=== PATIENT | female | born 1950 | race Caucasian/White ===

== ENCOUNTER 2018-07-03 22:11 | Inpatient (IN) | payer OTHER ==
[~2018-07-03] VITALS: Ht 157.5 cm; Wt 80.2 kg
[~2018-07-03 22:11] MED LIST: ACID REDUCER20 MG PO; ASPIRIN325 MG PO; CARDIZEM CD240 MG PO; CELEBREX200 MG PO; CLARINEX5 MG PO; DECADRON4 M1 PO; ESTRACE0.5 MG PO; KLONOPIN1 MG PO; LASIX40 MG PO; LIPITOR40 MG PO; LO-DOSE ASPIRIN81 M1 PO; MOBIC15 MG PO; MULTIPLE VITAM1 EAC1 PO; NEURONTIN600 MG PO; NEXIUM40 MG PO; PREMARIN0.45 MG PO; SUPER CALCIUM600 MG PO; VICODIN 5-3001 EACH PO
[2018-07-04] VITALS (7 sets, daily range): BP systolic 112–180; BP diastolic 53–89
[2018-07-05] VITALS (14 sets, daily range): BP systolic 100–149; BP diastolic 46–92
[2018-07-06] VITALS (7 sets, daily range): BP systolic 123–163; BP diastolic 59–82
[2018-07-07 04:00] VITALS: BP 147/67
[2018-07-07 07:28] VITALS: BP 164/73
[2018-07-07] MEDS ORDERED: HYDROCODON-ACE1 EAC7 PO (08:02)
== END 2018-07-07 14:39 | disposition home health service (06) | DRG 27 ==
LOC: ENRESERV 22:11 → 4WEST 07-04 07:54 → 2SOUTH 07-04 07:54 → SDC 07-04 10:00 → EDSTATUS 07-04 10:00 → RAD 07-04 10:00 → 2SOUTH 07-04 10:00 → 4WEST 07-04 17:46 → ENRESERV 07-05 13:59 → 3EAST 07-05 15:00
PROC: 00B10ZZ Excision of Cerebral Meninges, Open Approach (ICD-10-PCS; principal; 2018-07-04)
DX: D32.0 Benign neoplasm of cerebral meninges (principal); I10 Essential (primary) hypertension; I25.10 Atherosclerotic heart disease of native coronary artery without angina pectoris; E78.5 Hyperlipidemia, unspecified; Z79.82 Long term (current) use of aspirin; Z98.1 Arthrodesis status
CPT/HCPCS: 70450; 77021; 87641; 88307; 88331; 94799; C1713; J0360; J0690; J1165; J1170; J2405; J2710; J3010; J3480; J7050; J7643; J8540